=== PATIENT | female | born 1965 | race American Indian/Alaskan Native ===

== ENCOUNTER 2017-12-27 07:40 | Outpatient (CLI) | payer BC ==
--- NOTE | 2017-12-27 08:06 | XRay Report ---
Left anterior skull limits History: Left hand pain. Findings: Arthritic changes noted at the interphalangeal joints of fourth finger. Mild arthritic changes in the interphalangeal joints of second third and fifth finger. No periosteal reaction, lytic lesion or soft tissue calcification or fracture. 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
== END 2017-12-27 07:41 | disposition home or self-care (01) ==
LOC: SPVIMAG 07:40
PROVIDERS: ATTEND Orthopaedic Surgery
DX: M19.042 Primary osteoarthritis, left hand (principal)